=== PATIENT | male | born 1955 | race Caucasian/White ===

== ENCOUNTER 2025-04-19 14:32 | Inpatient (IN) ==
--- NOTE | 2025-04-19 15:04 | Emergency Department Note ---
Impression & Plan Acute left-sided weakness ED Provider Note ED Provider Note NAME: RAHUL DIAMOND AGE:69 SEX: Male : 1955 ARRIVES VIA: Private vehicle INFORMANT: Patient ED PROVIDER(s): Shea Parks DO CHIEF COMPLAINT: Left-sided weakness HPI: This is a 69-year-old male presents the emergency department due to concern for intermittent left-sided weakness over the last 2 days. Patient states he first began noticing symptoms night. He states he did fall trying to get up out of bed due to weakness. Patient states he seemed to feel little bit better in the morning and after getting up and getting around he felt as though the left side was nearly back to normal. He states yesterday evening" he started to have increased left-sided weakness again and fell. Family concerned this morning due to persistent symptoms and brought him in here for further evaluation. No recent fevers, chills, or illness. Patient states he has had prior coronary artery disease and angioplasty. He states he does not use any aspirin or Plavix. He states he does have high blood pressure and high cholesterol but does not routinely take medications. PAST MEDICAL HISTORY:See Below PAST SURGICAL HISTORY:See Below FAMILY HISTORY:See Below SOCIAL HISTORY:See Below HOME MEDICATIONS:See Below ALLERGIES:See Below VITALS:See Below PHYSICAL EXAMINATION: GENERAL: alert, well appearing, well nourished, no distress, non-toxic EYE EXAM: normal conjunctiva, PERRL and EOM's grossly intact OROPHARYNX: no exudate, no erythema, lips, buccal mucosa, and tongue normal and mucous membranes are moist NECK: supple, no nuchal rigidity, no adenopathy, non-tender LUNGS: Clear to auscultation. Normal chest wall mechanics, no w/r/r HEART: no murmurs, S1 normal and S2 normal ABDOMEN: abdomen soft, non-tender, normo-active bowel sounds, no masses, no rebound or guarding. BACK: Back is symmetrical on inspection and there is no deformity, no midline tenderness, no CVA tenderness. SKIN: no rashes, petechiae, orbruising UPPER EXTREMITIES: upper extremities are grossly normal. FROM, nml pulses b/l. LOWER EXTREMITIES: No pitting edema. FROM, nml pulses b/l. NEURO EXAM: Normal sensorium, cranial nerves II-XII grossly intact, normal speech, no facial droop,nogross weakness of arms, LLE weakness. Gross sensation intact. No ataxia.NIHSS 3 Vital Signs: reviewed and remarkable Differential Diagnosis: ischemic Stroke, hemorrhagic stroke, bells palsy, mass, neoplasm, migraine headache, seizure, subarachnoid hemorrhage, TIA, transient global amnesia, medication ADR, as well as others were considered MEDICAL DECISION MAKING: This is a 69-year-old male presents emergency department with 2 days of left- sided weakness. Patient was afebrile and hemodynamically stable although he was noted to be hypertensive. Patient states he is not currently taking any blood pressure medications. Labs drawn and sent, IV established, EKG and chest ray performed at bedside and interpreted by me and patient was monitored on telemetry. He was started on gentle IV fluid hydration and sent for CT/CTA. CTV did not reveal any acute infarct or ICH, however an old cerebellar infarct was noted. Patient denies ever being told he had a stroke or ever noting any strokelike symptoms including abrupt onset dizziness or vision changes. Patient with a low NIH stroke score however likely risk factors and per his own report noncompliance with previously prescribed medications for high blood pressure and high cholesterol. Patient also not taking any antiplatelet medications. Patient given aspirin and high-dose statin here and case discussed with the hospitalist team for further evaluation and management. Consultation(s): 1649: Discussed with Merissa Pastor hospitalist team, for additional evaluation and management. ER Treatment Provided: See below Diagnostics Interpreted By Me: -ECG: normal sinus at 85, leftward axis, normal intervals, no acute ST/T wave changes -Cardiac Monitoring: An order was placed for continuous cardiac monitoring. The monitor shows a rate of 82 with normal sinus rhythm. -Laboratory studies: As stated above and show below. -Imaging studies: ct head: no ich Triage Nursing Note Reviewed Prior/Outside Records Reviewed Past Med/Surg History Problem List CAD (coronary artery disease) HLD (hyperlipidemia) HTN (hypertension) Acute left-sided weakness (Acute) Social History (Updated 04/19/25 @ 17:40 by Natalee Carmona PA-C) Smoking Status: Current some day smoker Tobacco Type: Cigars Second Hand Exposure: No; Do You Dip or Chew Tobacco: No; Tobacco Cessation Education Requested by Patient: No Hx Alcohol Use: No Hx Substance Use: No Preferred Language: Yi Communication Ability: Effective Backside Grinder Required: No Beliefs That Will Affect Care: None Current Living Situation: Family Current Living Situation Comment: lives at home w/ son Other Information That Helps Us Care for You: No Feels Safe at Home: Yes Safety Concerns: Feels Safe At This Time Assistive Devices: None Allergies Allergies Allergy/AdvReac Type Severity Reaction Status Date / Time pollen extracts Allergy Congested Verified 04/19/25 16:50 Home Meds Home Medications Medication Instructions Recorded Confirmed valsartan 320 1 tab PO QAM 04/19/25 04/19/25 mg-hydrochlorothiazide 25 mg tablet Results & Data (ED) Vital Signs Vital Signs - 24 hr 04/19/25 14:35 04/19/25 14:56 04/19/25 15:52 Temperature 36.5 C Temperature Source Temporal Artery Scan Pulse Rate 89 Pulse Rate [Apical] 80 Pulse Rhythm [Apical] Regular Pulse Strength [Apical] Respiratory Rate 18 20 Respiratory Effort / Characteristics Non-Labored Spontaneous Respiratory Depth Normal Respiratory Pattern Regular Blood Pressure 183/96 H Blood Pressure [Left Arm] 179/103 H Blood Pressure Mean 125 Blood Pressure Mean [Left Arm] 128 Blood Pressure Position [Left Arm] Sitting Pulse Oximetry 95 92 96 Oxygen Delivery Method Room Air Room Air Sepsis Recent Fever Within 48 Hours No Sepsis New/Unexplained Change in Mental Status No Sepsis Action Taken by Nursing No Action Required 04/19/25 16:14 04/19/25 16:33 Temperature Temperature Source Pulse Rate 83 Pulse Rate [Apical] 82 Pulse Rhythm [Apical] Regular Pulse Strength [Apical] Normal Respiratory Rate 17 Respiratory Effort / Characteristics Non-Labored Spontaneous Respiratory Depth Normal Respiratory Pattern Regular Blood Pressure Blood Pressure [Left Arm] 180/104 H Blood Pressure Mean Blood Pressure Mean [Left Arm] 129 Blood Pressure Position [Left Arm] Sitting Pulse Oximetry 91 Oxygen Delivery Method Room Air Sepsis Recent Fever Within 48 Hours Sepsis New/Unexplained Change in Mental Status Sepsis Action Taken by Nursing Laboratory Data 04/19/25 14:48 04/19/25 14:48 Lab Results 04/19/25 04/19/25 04/19/25 Range/Units 14:48 14:54 16:19 WBC 8.78 (4.8-10.8) K/ul RBC 5.09 (4.70-6.10) M/uL Hgb 16.6 (14.0-18.0) g/dl POC Hgb 16.7 (14.0-18.0) g/dl Hct 46.5 (42.0-52.0) % POC Hct 49 (42-52) % MCV 91.4 (80.0-100.0) fL MCH 32.6 (25.0-34.0) pg MCHC 35.7 (32.0-36.0) g/dL RDW Std Deviation 43.0 (36.4-46.3) fL RDW Coeff of Kemar 12.8 (11.5-14.5) % Plt Count 270 (130-400) K/uL MPV 10.4 (9.4-12.4) fL Immature Gran % (Auto) 0.2 % Neut % (Auto) 64.3 % Lymph % (Auto) 24.6 % [place] % (Auto) 9.3 % Eos % (Auto) 1.1 % Baso % (Auto) 0.5 % Neut # (Auto) 5.64 (1.40-6.50) K/uL Lymph # (Auto) 2.16 (1.20-3.40) K/uL [place] # (Auto) 0.82 H (0.11-0.59) K/uL Eos # (Auto) 0.10 (0.00-0.50) K/uL Baso # (Auto) 0.04 (0.00-0.20) K/uL Immature Gran # (Auto) 0.02 (0.01-0.20) K/uL PT 10.9 (9.0-12.0) Seconds INR 1.0 (0.9-1.1) APTT 28 (21-31) Seconds PTT Ratio 1.0 POC Sodium 141 (135-144) mmol/L Sodium 140 (136-145) mmol/L POC Potassium 3.3 (3.3-5.0) mmol/L Potassium 3.2 L (3.5-5.1) mmol/L POC Chloride 99 L (101-112) mmol/L Chloride 100 (98-107) mmol/L Carbon Dioxide 33 H (21-32) mmol/L POC Total CO2 32 H (24-31) mmol/L Anion Gap 7 (3-11) POC Anion Gap 15.0 L (16-25) mmol/L POC BUN 24 H (7-18) mg/dl BUN 23 (6-23) mg/dl Creatinine 1.46 H (0.6-1.4) mg/dl POC Creatinine 1.7 H (0.6-1.3) mg/dl Est Cr Clr Drug Dosing Not Reportable eGFR 52.38 BUN/Creatinine Ratio 15.8 (10-20) Glucose 135 H (70-99(Fasting)) mg/dl POC Glucose (other) 133 H (70-99) mg/dl Calcium 10.4 H (8.6-10.3) mg/dl POC Ioniz Calcium Jarrell 1.25 (1.12-1.32) mmol/l Magnesium 1.9 (1.7-2.4) mg/dl Total Bilirubin 0.7 (0.2-1.0) mg/dl AST 22 (13-39) U/L ALT 22 (7-52) U/L Alkaline Phosphatase 75 (34-104) U/L Troponin I High Sens 11.5 (0-20) pg/ml Total Protein 7.9 (6.0-8.3) gm/dl Albumin 4.3 (3.4-5.0) gm/dl Globulin 3.6 (2.5-4.0) gm/dl Albumin/Globulin Ratio 1.2 (0.9-2) Urine Color Yellow Urine Appearance Clear (Clear) Urine pH 6.0 (4.5-7.5) Ur Specific [place] 1.041 H (1.000-1.030) Urine Protein Negative (Negative) Urine Glucose (UA) Negative (Negative) Urine Ketones Negative (Negative) Urine Blood Negative (Negative) Urine Nitrite Negative (Negative) Urine Bilirubin Negative (Negative) Urine Urobilinogen Negative (Negative) Ur Leukocyte Esterase Trace H (Negative) Urine WBC (Auto) 0-5 (0-5) /hpf Urine RBC (Auto) 0-2 (0-2) /hpf U Hyaline Cast (Auto) 0-2 (0-2) /lpf U Epithel Cells (Auto) 0-2 (0-2) /hpf Urine Bacteria (Auto) None Seen (None Seen) Urine Comment Anaplasma Smear See Comment Babesia Smear See Comment Lyme Disease Screen Negative (Negative) Administered Medications Atorvastatin Calcium (Atorvastatin 40 Mg Tab) 80 mg PO QAM MARY Stop: 05/19/25 16:59 Last Admin: 04/19/25 17:14 Dose: 80 mg Documented By: david Sodium Chloride (Nss) 1,000 mls @ 125 mls/hr IV .Q8H MARY Stop: 04/20/25 00:00 Last Admin: 04/19/25 15:15 Dose: 125 mls/hr Documented By: AMS Discontinued Medications Aspirin (Aspirin 325 Mg Ectab) 325 mg PO NOW STA Stop: 04/19/25 16:52 Last Admin: 04/19/25 17:14 Dose: 325 mg Documented By: david Ioversol (Optiray 320 125ml) 119 ml IV ONCE ONE Stop: 04/19/25 15:38 Last Admin: 04/19/25 15:37 Dose: 119 ml Documented By: ANT Labetalol HCl (Labetalol Hcl Iv 5 Mg/Ml 20ml) 5 mg IV NOW STA Stop: 04/19/25 20:39 Last Admin: 04/19/25 21:05 Dose: Not Given Documented By: alt Potassium Chloride (Potassium Chloride 20 Meq/15 Ml Udc) 40 meq PO NOW STA Stop: 04/19/25 19:54 Last Admin: 04/19/25 21:02 Dose: 40 meq Documented By: alt Imaging Data Radiologist's Impression: Chest X-Ray 04/19/25 14:55 Chest radiograph, one view History: Neuro deficit Comparison: None Findings: Single AP view of the chest performed. No focal consolidation or pleural effusion. No pneumothorax. The cardiomediastinal silhouette is within normal limits. Normal pulmonary vascularity. No evidence for lymphadenopathy. No visualized bony or soft tissue abnormality. Impression: Normal chest radiograph Electronically signed by Jorge Lo 04-19-2025 3:[address] 04/19/25 14:55 Clinical History: Weakness Technique: Axial computed tomography images were obtained of the brain without intravenous contrast. Findings: There is diffuse cerebral atrophy, within expected limits for the patient's age. Areas of decreased attenuation are seen within the periventricular white matter, likely representing chronic small vessel ischemic disease. There is an apparent old infarct of the right cerebellar hemisphere. There is no definite sign of acute infarction. No intracranial hemorrhage is evident. No definite mass lesion is seen on this noncontrast examination. There is no midline shift or other form of herniation. No hydrocephalus is seen. No fracture is identified. The orbits and the visualized paranasal sinuses appear unremarkable. The mastoid air cells appear clear. Impression: 1. Cerebral atrophy, old cerebellar infarct, and chronic small vessel ischemic disease 2. No definite acute pathology Electronically signed by Christian Montes 04-19-2025 3:48 PM Head CTA 04/19/25 14:55 Clinical history: Left leg weakness Technique: Axial computed tomography images were obtained of the brain after the administration of intravenous contrast according to the CT angiogram protocol Findings: No definite stenosis or aneurysm is seen of the anterior, middle, or posterior cerebral artery circulations. There is a moderate severity stenosis of the basilar artery Impression: 1. 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 No other definite stenosis or aneurysm of the intracranial arteries Electronically signed by Christina Montes 04-19-2025 3:51 PM Neck CTA 04/19/25 14:55 Clinical history: Left leg weakness Technique: Axial computed tomography images were obtained of the neck after the administration of intravenous contrast according to the CT angiogram protocol Findings: No stenosis is seen of the common carotid arteries bilaterally. There is plaque within the carotid bulbs bilaterally, without significant stenosis. The remainder of the internal carotid arteries appear patent bilaterally. No stenosis of the external carotid arteries is seen The vertebral arteries are patent bilaterally with no significant stenosis seen. 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 Impression: Bilateral carotid atherosclerosis, without significant stenosis Electronically signed by Christian Montes 04-19-2025 3:55 PM Discharge Plan Visit Data Chief Complaint: Neuro Symptoms/Deficit Stated Complaint: NEURO SYMPTOMS ED Provider: Shea Parks Discharge Problem: Acute left-sided weakness Patient Disposition: Admitted As Inpatient Condition: Fair Discharge Instructions Interventions: ED Discharge Assessment Last Done: 04/19/25 18:27
[2025-04-19] MEDS: SODIUM CHLORIDE 0.9% 1,000 ML IV SCH (15:15)
[2025-04-19 15:31] LABS: Hematocrit (blood only) 46.5 % (42.0-52.0); Hemoglobin 16.6 g/dl (14.0-18.0); Immature Granulocytes # (auto) 0.02 K/uL (0.01-0.20); Immature Granulocytes % (auto) 0.2 %; Mean Corpuscular Hemoglobin 32.6 pg (25.0-34.0); Mean Corpuscular Volume 91.4 fL (80.0-100.0); Platelet Count 270 K/uL (130-400); RDW Standard Deviation 43.0 fL (36.4-46.3); Red Blood Count 5.09 M/uL (4.70-6.10); White Blood Count 8.78 K/ul (4.8-10.8)
--- NOTE | 2025-04-19 15:33 | XRay Report ---
Chest radiograph, one view History: Neuro deficit Comparison: None Findings: Single AP view of the chest performed. No focal consolidation or pleural effusion. No pneumothorax. The cardiomediastinal silhouette is within normal limits. Normal pulmonary vascularity. No evidence for lymphadenopathy. No visualized bony or soft tissue abnormality. Impression: Normal chest radiograph Electronically signed by Jorge Lo 04-19-2025 3:32 PM
[2025-04-19] MEDS: OPTIRAY 320 125ml IV ONE (15:37)
--- NOTE | 2025-04-19 15:48 | CT Scan Report ---
Clinical History: Weakness Technique: Axial computed tomography images were obtained of the brain without intravenous contrast. Findings: There is diffuse cerebral atrophy, within expected limits for the patient's age. Areas of decreased attenuation are seen within the periventricular white matter, likely representing chronic small vessel ischemic disease. There is an apparent old infarct of the right cerebellar hemisphere. There is no definite sign of acute infarction. No intracranial hemorrhage is evident. No definite mass lesion is seen on this noncontrast examination. There is no midline shift or other form of herniation. No hydrocephalus is seen. No fracture is identified. The orbits and the visualized paranasal sinuses appear unremarkable. The mastoid air cells appear clear. Impression: 1. Cerebral atrophy, old cerebellar infarct, and chronic small vessel ischemic disease 2. No definite acute pathology Electronically signed by Christian Montes 04-19-2025 3:48 PM
[2025-04-19 15:52] LABS: Alanine Aminotransferase 22 U/L (7-52); Albumin Globulin Ratio 1.2 (0.9-2); Albumin Level 4.3 gm/dl (3.4-5.0); Alkaline Phosphatase 75 U/L (34-104); Anion Gap 7 (3-11); Bilirubin,Total 0.7 mg/dl (0.2-1.0); Blood Urea Nitrogen 23 mg/dl (6-23); Calcium 10.4 mg/dl (8.6-10.3); Carbon Dioxide 33 mmol/L (21-32); Chloride 100 mmol/L (98-107); Globulin 3.6 gm/dl (2.5-4.0); Glucose 135 mg/dl (70-99(Fasting)); Magnesium 1.9 mg/dl (1.7-2.4); Potassium 3.2 mmol/L (3.5-5.1); Sodium 140 mmol/L (136-145); Total Protein 7.9 gm/dl (6.0-8.3)
--- NOTE | 2025-04-19 15:53 | CT Scan Report ---
Clinical history: Left leg weakness Technique: Axial computed tomography images were obtained of the brain after the administration of intravenous contrast according to the CT angiogram protocol Findings: No definite stenosis or aneurysm is seen of the anterior, middle, or posterior cerebral artery circulations. There is a moderate severity stenosis of the basilar artery Impression: 1. 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 No other definite stenosis or aneurysm of the intracranial arteries Electronically signed by Christian Montes 04-19-2025 3:51 PM
[2025-04-19 15:56] LABS: INR 1.0 (0.9-1.1); Partial Thromboplastin Time 28 Seconds (21-31); Prothrombin Time 10.9 Seconds (9.0-12.0)
--- NOTE | 2025-04-19 16:00 | CT Scan Report ---
Clinical history: Left leg weakness Technique: Axial computed tomography images were obtained of the neck after the administration of intravenous contrast according to the CT angiogram protocol Findings: No stenosis is seen of the common carotid arteries bilaterally. There is plaque within the carotid bulbs bilaterally, without significant stenosis. The remainder of the internal carotid arteries appear patent bilaterally. No stenosis of the external carotid arteries is seen The vertebral arteries are patent bilaterally with no significant stenosis seen. 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 Impression: Bilateral carotid atherosclerosis, without significant stenosis Electronically signed by Christian Montes 04-19-2025 3:55 PM
--- NOTE | 2025-04-19 16:56 | History & Physical Report ---
Date of Service April 19, 2025 Assessment & Plan (1) Acute left-sided weakness: (2) HTN (hypertension): (3) HLD (hyperlipidemia): (4) CAD (coronary artery disease): Plan - Admit to tele - Stroke order set completed, no indication for thrombolytic - CT head reviewed and shows a chronic cerebellar stroke which the patient was unaware of. Left sided leg weakness present, left arm weakness is minimal currently, he cannot shrug the left shoulder. 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 - MRI brain wo contrast ordered - Check Echocardiogram - Neck CTA showed Bilateral carotid atherosclerosis, without significant stenosis- can consider carotid U/S for percentage of stenosis. - Given full dose aspirin and atorvastatin, cont baby aspirin and statin daily pending neuro recs. - Will allow permissive hypertension with SBP 140-170 - need pt to provide med list to confirm home antihypertensives and dosages as he doesn't know and I do not have access to them. - Tele-neurology consulted - PT/OT consults placed - Passed bedside swallow evaluation - speech evaluation ordered, allow HH diet - A1C and lipids with am labs - Neuro checks, fall precautions CAD HTN HLD - pt reports hx of angioplasty in 2017, have requested records from OSH by HIM - Allow permissive hypertension - dose of chlorthalidone to be confirmed once have med list? - statin therapy dialy - Check lipid panel with am labs DVT ppx: teds, scds Lines: PIV x 1 Diet: HH CODE: FULL Dispo: From home, likely to remain in the hospital x 1-2 days A total of 77 minutes were spent with greater than 50% of that time face to face with the patient, personally reviewing all current laboratories, imaging studies, past medication reconciliation, outpatient chart review, and discussion with specialists to collaborate care for the patient with attending. Please see attending documentation for corrections and/or additions. History of Present Illness Chief Complaint: Acute left sided weakness Primary Care Provider: NO PCP This is a 69 yo M with PMHx of CAD, s/p angioplasty in 2017, (no stents), HTN, HLD, but does not take any medications for such. Presents to ER with left sided waxing and waning weakness which began night. He got up in middle of night and fell next to the bed because his left leg gave out , causing him to fall onto the floor. At that time he noticed left hand tingling as well. He struggled for some time to get up and urinated on himself due to inability to get to the bathroom in time. Eventually pulled himself up and went back to bed. Left leg weakness was slightly improved but was still present on Monday morning, so he attempted to go about his day. Left leg weakness worsened in the evening and he had similar repeat of events with falling when trying to get out of bed to go to the bathroom in the middle of the night on Monday. Pt is visiting here from [place] and has been here for about the past 3 weeks, living with a significant other whom they co[place]. She asked him to come to the ER and drove him here. During the ride here, pt reports his left hand breastfeeding program coordinator strength seemed gone and dropped a bottle of water in the car. He denies speech discrepancies, word finding or garbled speech. He does note that he has had difficulty over the past 3 weeks with word finding and forgetfulness. CTA neck shows old cerebellar stroke. He was unaware of such. During my evaluation, patients weakness is worse in the left leg overall, minimal left arm and left breastfeeding program coordinator strength discrepancy compared to the right arm. He is tearful at times, saying that his only son is in the [place] and [place] currently, and he has no way to contact him regarding this. Pt notes he was supposed to travel back to [place] this weekend to start a new job on Monday. In regards to medications, patient is supposed to be taking chlorthalidone for BP management but does not know when he took it last or the dosage, also takes a baby aspirin when he remembers it, maybe 3-4x per week. Social Hx: Chews cigars but does not smoke them, no cigarette smoking hx, no chewing tobacco use, no alcohol or illicit drug use. Family Hx: Father: CVA, Alzheimer disease, at age 90 in 2013. Mother at age 97 of failure to thrive. Pt has two older sisters both with DM II, and two younger brothers with DMII. One of his brothers has also had a recent CVA. Allergies Allergy/AdvReac Type Severity Reaction Status Date / Time pollen extracts Allergy Congested Verified 04/19/25 16:50 Home Medications Medication Instructions Recorded Confirmed Type valsartan 320 1 tab PO QAM 04/19/25 04/19/25 History mg-hydrochlorothiazide 25 mg tablet Past Med/Surg History Problem List CAD (coronary artery disease) HLD (hyperlipidemia) HTN (hypertension) Acute left-sided weakness (Acute) Social History (Updated 04/19/25 @ 17:40 by Natalee Carmona PA-C) Smoking Status: Light tobacco smoker Tobacco Type: Cigars Review of Systems Review of Systems: Constitutional: No fever, sweats or chills Eyes: No diplopia, no worsening or blurred vision ENT: normal hearing, no trouble swallowing Respiratory: No cough, sputum, dyspnea at rest or on exertion Cardiovascular: No chest pain, tightness or palpitations, hx of CAD s/p angioplasty, no cardiac stents. He is noncompliant with cardiac meds. Abdomen: No pain, nausea, vomiting, diarrhea or constipation Musculoskeletal: No joint pain, calf pain, swelling Neurologic: As per HPI Psychiatric: No anxiety or depression Skin: No rash or itch Physical Exam Physical Exam: General: awake, alert, no apparent distress, white male Head: Normocephalic, atraumatic ENT: PERRL, EOMI, no pharyngeal exudate, mucous membranes moist Chest: Clear to auscultation, on room air, no adventitious breath sounds Cardiac: Regular rate and rhythm, no murmur, no JVD, normal peripheral pulses, good capillary refill Abdominal: NABS x 4 quadrants, soft, nondistended, nontender to palpation, no rebound or guarding Extremities: Normal inspection, no peripheral edema or erythema, calfs nontender to palpation Psych: Normal mood and affect Neuro: AAO x 3, strength rated 5/5 on the right lower extremity, rated 4/5 in the left leg and can hold leg in the air but unable to lift more than 30 degrees off the bed. He struggles to bend the left knee and pull his leg up. Pt answers all questions appropriately. No pronator drift. He has strength left arm rated 4/5 compared to the right at 5/5. 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 Pt is unable to shrug the left shoulder at all. He has no sensory deficits to light touch throughout. Speech is clear. No word finding. Can perform heel to girard testing with right leg, difficulty with the left leg moving down the right girard. Results & Data Results & Data Vital Signs (Past 12 Hours) Vital Signs Temp Pulse Pulse Resp BP BP Pulse Ox 04/19/25 16:33 82 17 180/104 H 91 04/19/25 16:14 83 04/19/25 15:52 96 04/19/25 14:56 80 20 179/103 H 92 04/19/25 14:35 36.5 C 89 18 183/96 H 95 O2 Del Method 04/19/25 16:33 Room Air 04/19/25 16:14 04/19/25 15:52 Room Air 04/19/25 14:56 Room Air 04/19/25 14:35 Laboratory Results 04/19/25 04/19/25 04/19/25 16:19 14:54 14:48 WBC 8.78 RBC 5.09 Hgb 16.6 POC Hgb 16.7 Hct 46.5 POC Hct 49 MCV 91.4 MCH 32.6 MCHC 35.7 RDW Std Deviation 43.0 RDW Coeff of Kemar 12.8 Plt Count 270 MPV 10.4 Immature Gran % (Auto) 0.2 Neut % (Auto) 64.3 Lymph % (Auto) 24.6 [place] % (Auto) 9.3 Eos % (Auto) 1.1 Baso % (Auto) 0.5 Neut # (Auto) 5.64 Lymph # (Auto) 2.16 [place] # (Auto) 0.82 H Eos # (Auto) 0.10 Baso # (Auto) 0.04 Immature Gran # (Auto) 0.02 PT 10.9 INR 1.0 APTT 28 PTT Ratio 1.0 POC Sodium 141 Sodium 140 POC Potassium 3.3 Potassium 3.2 L POC Chloride 99 L Chloride 100 Carbon Dioxide 33 H POC Total CO2 32 H Anion Gap 7 POC Anion Gap 15.0 L POC BUN 24 H BUN 23 Creatinine 1.46 H POC Creatinine 1.7 H Est Cr Clr Drug Dosing Not Reportable eGFR 52.38 BUN/Creatinine Ratio 15.8 Glucose 135 H POC Glucose (other) 133 H Calcium 10.4 H POC Ioniz Calcium Jarrell 1.25 Magnesium 1.9 Total Bilirubin 0.7 AST 22 ALT 22 Alkaline Phosphatase 75 Troponin I High Sens 11.5 Total Protein 7.9 Albumin 4.3 Globulin 3.6 Albumin/Globulin Ratio 1.2 Urine Comment Anaplasma Smear See Comment Babesia Smear See Comment Lyme Disease Screen Negative Diagnostic Findings Chest X-Ray 04/19/25 14:55 Chest radiograph, one view History: Neuro deficit Comparison: None Findings: Single AP view of the chest performed. No focal consolidation or pleural effusion. No pneumothorax. The cardiomediastinal silhouette is within normal limits. Normal pulmonary vascularity. No evidence for lymphadenopathy. No visualized bony or soft tissue abnormality. Impression: Normal chest radiograph Electronically signed by Jorge Lo 04-19-2025 3:[address] 04/19/25 14:55 Clinical History: Weakness Technique: Axial computed tomography images were obtained of the brain without intravenous contrast. Findings: There is diffuse cerebral atrophy, within expected limits for the patient's age. Areas of decreased attenuation are seen within the periventricular white matter, likely representing chronic small vessel ischemic disease. There is an apparent old infarct of the right cerebellar hemisphere. There is no definite sign of acute infarction. No intracranial hemorrhage is evident. No definite mass lesion is seen on this noncontrast examination. There is no midline shift or other form of herniation. No hydrocephalus is seen. No fracture is identified. The orbits and the visualized paranasal sinuses appear unremarkable. The mastoid air cells appear clear. Impression: 1. Cerebral atrophy, old cerebellar infarct, and chronic small vessel ischemic disease 2. No definite acute pathology Electronically signed by Christian Montes 04-19-2025 3:48 PM Head CTA 04/19/25 14:55 Clinical history: Left leg weakness Technique: Axial computed tomography images were obtained of the brain after the administration of intravenous contrast according to the CT angiogram protocol Findings: No definite stenosis or aneurysm is seen of the anterior, middle, or posterior cerebral artery circulations. There is a moderate severity stenosis of the basilar artery Impression: 1. 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 No other definite stenosis or aneurysm of the intracranial arteries Electronically signed by Christian Montes 04-19-2025 3:51 PM Neck CTA 04/19/25 14:55 Clinical history: Left leg weakness Technique: Axial computed tomography images were obtained of the neck after the administration of intravenous contrast according to the CT angiogram protocol Findings: No stenosis is seen of the common carotid arteries bilaterally. There is plaque within the carotid bulbs bilaterally, without significant stenosis. The remainder of the internal carotid arteries appear patent bilaterally. No stenosis of the external carotid arteries is seen The vertebral arteries are patent bilaterally with no significant stenosis seen. 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 Impression: Bilateral carotid atherosclerosis, without significant stenosis Electronically signed by Christian Montes 04-19-2025 3:55 PM ECG Rate (beats per minute): 85 Rhythm: normal sinus Additional Comments: Old inferior infarct. No previous EKG available for comparison. Personally reviewed. Code Status & VTE Plan Code Status Full code Supervising Physician Co-Signing Physician Notes Patient presenting with left sided weakness since . On exam, shrugging difficulties on left, left arm and left leg weakness, NIHSS of 2 for left leg drift albeit clouded by difficulty with moving it. No leukocytosis, K of 3.2 replenished. Creatinine 1.46, unclear baseline, per patient around 1.4. Basilar stenosis severe, old cerebellar infarct, cerebral atrophy noted. Patient presenting with what appears to be a left sided stroke. Has prior stroke on CT imaging as well. Aspirin, statin ordered. Stroke order set ordered. MR brain for further definition of stroke, deficits suggest possible right MCA infarct. Check A1c, lipids, TSH. PT/OT speech as well. Neurology consult, appreciate recs. I have seen and discussed the case with the collaborating advanced practitioner. I agree with the above H&P. I have reviewed and confirmed the patients medical history, the findings on physical examination, and the patients diagnosis and treatment plan with Natalee Carmona PA-C and agree with the information documented. I spent a total of 20 minutes coordinating, documenting, and providing care for this patient excluding time spent in the performance of separately billed services. All of the aforementioned completed outside of collaborating with the assigned advanced practitioner for a full treatment plan. I have reviewed the advanced practitioner's documentation, and I agree with, and take responsibility for the plan of care
[2025-04-19 17:01] LABS: Appearance Urine Clear (Clear); Bacteria Urine Automated None Seen (None Seen); Cast Urine Automated 0-2 /lpf (0-2); Epithelial Cell Urine Auto 0-2 /hpf (0-2); Glucose Urine UA Negative (Negative); RBC Urine Automated 0-2 /hpf (0-2); WBC Urine Automated 0-5 /hpf (0-5)
[2025-04-19] MEDS: ASPIRIN 325 MG ECTAB PO STA (17:14)
[2025-04-19] MEDS: ATORVASTATIN 40 MG TAB PO SCH (17:14)
[2025-04-19] MEDS ORDERED: PHARMACIST DISCHARGE MED REC CONSULT PRN (18:52)
[2025-04-19] MEDS: POTASSIUM CHLORIDE 20 MEQ/15 ML UDC PO STA (21:02)
[2025-04-19] MEDS: LABETALOL HCL IV 5 MG/ML 20ML IV STA (21:05)
[2025-04-20 08:13] LABS: Hematocrit (blood only) 42.8 % (42.0-52.0); Hemoglobin 15.4 g/dl (14.0-18.0); Immature Granulocytes # (auto) 0.01 K/uL (0.01-0.20); Immature Granulocytes % (auto) 0.1 %; Mean Corpuscular Hemoglobin 33.0 pg (25.0-34.0); Mean Corpuscular Volume 91.6 fL (80.0-100.0); Platelet Count 230 K/uL (130-400); RDW Standard Deviation 42.9 fL (36.4-46.3); Red Blood Count 4.67 M/uL (4.70-6.10); White Blood Count 6.71 K/ul (4.8-10.8)
[2025-04-20 08:35] LABS: Anion Gap 7.0 (3-11); Blood Urea Nitrogen 19.0 mg/dl (6-23); Calcium 9.6 mg/dl (8.6-10.3); Carbon Dioxide 31.0 mmol/L (21-32); Chloride 103.0 mmol/L (98-107); Cholesterol 193.0 mg/dl (0-200); Creatinine Clr Calc Pharmacy 61.4 ml/min; Glucose 100.0 mg/dl (70-99(Fasting)); HDL Cholesterol 39.0 mg/dl; Potassium 3.5 mmol/L (3.5-5.1); Sodium 141.0 mmol/L (136-145); Triglycerides 97.0 mg/dl (0-150)
[2025-04-20] MEDS: ASPIRIN 81 MG ECTAB PO SCH (09:00)
[2025-04-20] MEDS ORDERED: ATORVASTATIN 40 MG TAB PO SCH (09:00)
[2025-04-20 09:01] LABS: Hemoglobin A1C 5.8 % (4.5-5.6)
--- NOTE | 2025-04-20 10:51 | Hospitalist Progress Note ---
Date of Service April 20, 2025 Assessment & Plan (1) Acute left-sided weakness: (2) HTN (hypertension): (3) HLD (hyperlipidemia): (4) CAD (coronary artery disease): Plan Patient presents with concern for left sided weakness ( LLE weakness > LUE) CT head shows a chronic cerebellar stroke CTA Head- mod severity stenosis of basilar artery CTA Neck- carotid atherosclerosis, wo significant stenosis Started aspirin, lipitor-continue will start antihypertensive to normalize blood pressure MRI brain wo contrast pending Echo pending PT/OT neurology consult pending CAD HTN HLD - pt reports hx of angioplasty in 2017, have requested records from OSH by HIM -continue on aspirin, lipitor -started on antihypertensive DVT ppx: heparin Lines: PIV x 1 Diet: HH CODE: FULL Dispo: from [place] visiting friends;work up pending Time spent evaluating patient, direct bedside care, chart review, placing orders, interpretation of diagnostic studies, discussion with consultants, patient, and family members, as well as other required patient management activities is 50 minutes Please note the above document was generated using voice recognition software. It may contain grammatical, syntax or spelling errors. Any formal questions or concerns about the content, text or information contained within the body of this dictation should be directly addressed to the provider for clarification Admission and Anticipated Discharge Date Admission Date: April 19, 2025 Subjective Patient seen and examined at bedside. He is comfortable; not in distress. Reports some weakness on the left lower extremity; no weakness on left upper extremity. Physical Exam Physical Exam: Constitutional: WD/WN, vitals as above, NAD, sitting up in bed, pleasant, conversing easily Respiratory: normal respiratory effort, lungs clear to auscultation, no wheeze, rales, rhonchi. Normal insp/exp effort, no accessory muscle use Cardiovascular: RRR, no murmur, no edema Vessels: no JVD or carotid bruit Chest: normal inspection of chest Abdomen: normal bowel sounds, soft, nontender, no hepatosplenomegaly Neurologic: PERRL, EOMI, accommodation nl, no face palsy, no dysarthria CN's II- XI intact bilaterally. left LE 4+/5(reports improvement compared to yesterday). intact strength otherwise Psychiatric: A+Ox3, euthymic affect Results & Data Results & Data Vital Signs (Past 12 Hours) Vital Signs Temp Pulse Pulse Resp BP Pulse Ox O2 Del Method 04/20/25 08:17 36.8 C 79 18 172/78 H 97 Room Air 04/20/25 04:30 36.5 C 78 18 184/102 H 96 Room Air 04/20/25 00:00 64
--- NOTE | 2025-04-20 11:39 | XRay Report ---
HISTORY: MRI clearance. Evaluation for orbital metal. TECHNIQUE: Orbits, 3 views. COMPARISON: None. FINDINGS: No radiopaque orbital foreign body is identified. The sella is not expanded. No paranasal sinus air-fluid levels. Mastoid air cells are well aerated. Radiopaque dental amalgam. Atherosclerotic calcification in the region of both carotid bifurcations. IMPRESSION: No radiopaque orbital foreign body. Electronically signed by Toño Llanos 04-20-2025 11:38 AM
--- NOTE | 2025-04-20 12:29 | Magnetic Resonance Report ---
HISTORY: Left lower extremity weakness. TECHNIQUE: MRI of the brain without contrast. COMPARISON: Head CT dated 04/19/2025. FINDINGS: The sella is not expanded. The cerebellar tonsils do not extend below the foramen magnum. Single focus of restricted diffusion involving the right centrum semiovale on series 8 image 35 consistent with a punctate infarct. Rightcerebellar hemisphere encephalomalacia consistent with remote infarct. Severe periventricular/Subcortical white matter T2/FLAIR hyperintensity is nearly confluent. areas of remote lacunar infarct involving the basal ganglia and right centrum seminal ovale. Moderate diffuse volume loss. Ventricular caliber is appropriate for the degree of volume loss. The fourth ventricle is midline. The basal cisterns are patent. The major intracranial flow voids are maintained. The globes and orbits are unremarkable. No paranasal sinus air-fluid levels. Mastoid air cells are well aerated. The soft tissues of the skull base and scalp are unremarkable. IMPRESSION: * Punctate focus of restricted diffusionIn the right centrum semiovale on series 8 image 35 consistent with acute infarct. * Severe nonspecific white matter T2/FLAIR hyperintensity. This is commonly attributed to severe chronic microvascular ischemic changes with other differential considerations including demyelinating disease or other infectious or inflammatory causes of leukoencephalopathy. * Encephalomalacia in the right cerebellar hemisphere consistent with remote infarct. * Additional chronic and/or incidental findings as detailed above. Electronically signed by Toño Llanos 04-20-2025 12:29 PM
--- NOTE | 2025-04-20 13:12 | XCELERA ---
[id number]
[2025-04-20] MEDS: hydroCHLOROthiazide 25 MG TAB PO STA (13:36)
[2025-04-20] MEDS: VALSARTAN 80 MG TAB PO STA (13:36)
--- NOTE | 2025-04-20 13:38 | Neurology Consultation ---
Date of Consultation April 20, 2025 Assessment & Plan (1) Stroke with cerebral ischemia: Mj De Leon is a 69 yo M presenting with L sided weakness secondary to a R hemispheric stroke - primary infarct is in the R BLAINE territory and very small but explains his leg weakness. Suspect related to atheroembolism from his carotid plaque. Afib can not be excluded but would wait until he returns to [place] to pursue cardiac event monitoring. In the meantime I agree with liptor 80mg daily and dapt, please load 300mg plavix and continue aspirin 81mg daily and plavix 75mg daily for 21 days. Otherwise his fluctuations post-stroke are not unexpected, he was educated on his stroke risk factors and signs/symptoms. -- DAPT with aspirin and plavix for 21 days, give 300mg x1 plavix now -- Lipitor 80mg daily -- Goal normotension -- Close follow-up in [place] with cardiac event monitoring -- Therapy for dispo planning -- Please contact us with further questions Telehealth Consultation Telehealth Information Telehealth Information: I performed this visit using a real-time telehealth connection between my location and the patients location ([facility]). After connecting through interactive tele-video, patient was identified by name and date of and/or wristband check.Patient (or authorized healthcare union representative) was informed that this was a telemedicine visit and it was being conducted confidentially over secure lines. My office door was closed and no one else was present in the room with me.Patient (or authorized healthcare union representative) provided consent to proceed with the visit, expressed an understanding of privacy and security of the telemedicine visit, and gave permission to have a hospital union representative in the room in order to assist with the visit and to conduct portions of the visit, as needed. I informed the patient (or authorized healthcare union representative) that I reviewed their record and presented the opportunity for them to ask any questions regarding the visit today. The patient agreed to participate. History of Present Illness Reason for Consultation: L leg weakness Requesting Physician: Dr. Ramsey Attending Physician: Ced Ramsey MD History of Present Illness Mj De Leon is a 69 yo M presenting with L sided weakness which initially resolved then worsened again this morning while going to [facility]. He is nearly back to his baseline and able to stand but still feels some weakness particularly in the L leg. He has never had a stroke in the past, was not on any antiplatelets at home. Is from [place] and is planning to return after discharge. Noted cigar smoking 7-10 per week. Denies any new symptoms since arrival, just fluctuation of his L sided weakness, particularly in the leg. Allergies Allergy/AdvReac Type Severity Reaction Status Date / Time pollen extracts Allergy Congested Verified 04/19/25 16:50 Home Medications Medication Instructions Recorded Confirmed Type valsartan 320 1 tab PO QAM 04/19/25 04/19/25 History mg-hydrochlorothiazide 25 mg tablet Patient History Social History (Updated 04/19/25 @ 17:40 by Natalee Carmona PA-C) Smoking Status: Current some day smoker Tobacco Type: Cigars Second Hand Exposure: No; Do You Dip or Chew Tobacco: No; Tobacco Cessation Education Requested by Patient: No Hx Alcohol Use: No Hx Substance Use: No Preferred Language: Slovenian Communication Ability: Effective Remote Sensing Technician Required: No Beliefs That Will Affect Care: None Current Living Situation: Family Current Living Situation Comment: lives at home w/ son Other Information That Helps Us Care for You: No Feels Safe at Home: Yes Safety Concerns: Feels Safe At This Time Assistive Devices: CPAP Review of Systems +L leg weakness Physical Exam Neurological Examination: Mental Status: Awake and alert. Oriented to person, place, and time. Fluent. Comprehension intact. Affect appropriate. Cranial Nerves: II: Reads NIHSS cards, pupils 3/3 to 2/2, rae grossly intact. III/IV/: Versions intact without nystagmus, no gaze preference. V: Facial sensation symmetric to light touch VII: Facial expression symmetric VIII: Hearing intact to voice IX/X: Palate elevates symmetrically XI: Shoulder shrug symmetric XII: Tongue midline Motor: Strength was symmetric and antigravity throughout. Pronator drift was absent. There were no abnormal movements. Sensory: Sensation to light touch was intact. Coordination: Finger to nose and heel to girard were intact. Gait: Narrow based and normal. Results & Data Vital Signs (Past 12 Hours) Vital Signs Temp Pulse Resp BP Pulse Ox O2 Del Method 04/20/25 08:17 36.8 C 79 18 172/78 H 97 Room Air 04/20/25 04:30 36.5 C 78 18 184/102 H 96 Room Air Laboratory Results Abnormal lab results 04/19/25 04/19/25 04/19/25 Range/Units 14:48 14:54 16:19 RBC (4.70-6.10) M/uL [place] # (Auto) 0.82 H (0.11-0.59) K/uL Potassium 3.2 L (3.5-5.1) mmol/L POC Chloride 99 L (101-112) mmol/L Carbon Dioxide 33 H (21-32) mmol/L POC Total CO2 32 H (24-31) mmol/L POC Anion Gap 15.0 L (16-25) mmol/L POC BUN 24 H (7-18) mg/dl Creatinine 1.46 H (0.6-1.4) mg/dl POC Creatinine 1.7 H (0.6-1.3) mg/dl Glucose 135 H (70-99(Fasting)) mg/dl POC Glucose (other) 133 H (70-99) mg/dl Hemoglobin A1c (4.5-5.6) % Calcium 10.4 H (8.6-10.3) mg/dl Ur Specific [place] 1.041 H (1.000-1.030) Ur Leukocyte Esterase Trace H (Negative) 04/20/25 Range/Units 07:13 RBC 4.67 L (4.70-6.10) M/uL [place] # (Auto) 0.67 H (0.11-0.59) K/uL Potassium (3.5-5.1) mmol/L POC Chloride (101-112) mmol/L Carbon Dioxide (21-32) mmol/L POC Total CO2 (24-31) mmol/L POC Anion Gap (16-25) mmol/L POC BUN (7-18) mg/dl Creatinine (0.6-1.4) mg/dl POC Creatinine (0.6-1.3) mg/dl Glucose 100 H (70-99(Fasting)) mg/dl POC Glucose (other) (70-99) mg/dl Hemoglobin A1c 5.8 H (4.5-5.6) % Calcium (8.6-10.3) mg/dl Ur Specific [place] (1.000-1.030) Ur Leukocyte Esterase (Negative) Diagnostic Findings Chest X-Ray 04/19/25 14:55 Chest radiograph, one view History: Neuro deficit Comparison: None Findings: Single AP view of the chest performed. No focal consolidation or pleural effusion. No pneumothorax. The cardiomediastinal silhouette is within normal limits. Normal pulmonary vascularity. No evidence for lymphadenopathy. No visualized bony or soft tissue abnormality. Impression: Normal chest radiograph Electronically signed by Jorge Lo 04-19-2025 3:[address] 04/19/25 14:55 Clinical History: Weakness Technique: Axial computed tomography images were obtained of the brain without intravenous contrast. Findings: There is diffuse cerebral atrophy, within expected limits for the patient's age. Areas of decreased attenuation are seen within the periventricular white matter, likely representing chronic small vessel ischemic disease. There is an apparent old infarct of the right cerebellar hemisphere. There is no definite sign of acute infarction. No intracranial hemorrhage is evident. No definite mass lesion is seen on this noncontrast examination. There is no midline shift or other form of herniation. No hydrocephalus is seen. No fracture is identified. The orbits and the visualized paranasal sinuses appear unremarkable. The mastoid air cells appear clear. Impression: 1. Cerebral atrophy, old cerebellar infarct, and chronic small vessel ischemic disease 2. No definite acute pathology Electronically signed by Christian Montes 04-19-2025 3:48 PM Head CTA 04/19/25 14:55 Clinical history: Left leg weakness Technique: Axial computed tomography images were obtained of the brain after the administration of intravenous contrast according to the CT angiogram protocol Findings: No definite stenosis or aneurysm is seen of the anterior, middle, or posterior cerebral artery circulations. There is a moderate severity stenosis of the basilar artery Impression: 1. 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 No other definite stenosis or aneurysm of the intracranial arteries Electronically signed by Christian Montes 04-19-2025 3:51 PM Neck CTA 04/19/25 14:55 Clinical history: Left leg weakness Technique: Axial computed tomography images were obtained of the neck after the administration of intravenous contrast according to the CT angiogram protocol Findings: No stenosis is seen of the common carotid arteries bilaterally. There is plaque within the carotid bulbs bilaterally, without significant stenosis. The remainder of the internal carotid arteries appear patent bilaterally. No stenosis of the external carotid arteries is seen The vertebral arteries are patent bilaterally with no significant stenosis seen. 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 Impression: Bilateral carotid atherosclerosis, without significant stenosis Electronically signed by Christian Montes 04-19-2025 3:55 PM Orbit X-Ray 04/20/25 09:39 HISTORY: MRI clearance. Evaluation for orbital metal. TECHNIQUE: Orbits, 3 views. COMPARISON: None. FINDINGS: No radiopaque orbital foreign body is identified. The sella is not expanded. No paranasal sinus air-fluid levels. Mastoid air cells are well aerated. Radiopaque dental amalgam. Atherosclerotic calcification in the region of both carotid bifurcations. IMPRESSION: No radiopaque orbital foreign body. Electronically signed by Toño Llanos 04-20-2025 11:38 AM Brain MRI 04/20/25 10:25 HISTORY: Left lower extremity weakness. TECHNIQUE: MRI of the brain without contrast. COMPARISON: Head CT dated 04/19/2025. FINDINGS: The sella is not expanded. The cerebellar tonsils do not extend below the foramen magnum. Single focus of restricted diffusion involving the right centrum semiovale on series 8 image 35 consistent with a punctate infarct. Rightcerebellar hemisphere encephalomalacia consistent with remote infarct. Severe periventricular/Subcortical white matter T2/FLAIR hyperintensity is nearly confluent. areas of remote lacunar infarct involving the basal ganglia and right centrum seminal ovale. Moderate diffuse volume loss. Ventricular caliber is appropriate for the degree of volume loss. The fourth ventricle is midline. The basal cisterns are patent. The major intracranial flow voids are maintained. The globes and orbits are unremarkable. No paranasal sinus air-fluid levels. Mastoid air cells are well aerated. The soft tissues of the skull base and scalp are unremarkable. IMPRESSION: * Punctate focus of restricted diffusionIn the right centrum semiovale on series 8 image 35 consistent with acute infarct. * Severe nonspecific white matter T2/FLAIR hyperintensity. This is commonly attributed to severe chronic microvascular ischemic changes with other differential considerations including demyelinating disease or other infectious or inflammatory causes of leukoencephalopathy. * Encephalomalacia in the right cerebellar hemisphere consistent with remote infarct. * Additional chronic and/or incidental findings as detailed above. Electronically signed by Toño Llanos 04-20-2025 12:29 PM
[2025-04-20] MEDS: CLOPIDOGREL BISULFATE 300 MG TAB PO STA (15:20)
--- NOTE | 2025-04-20 19:41 | Electrocardiogram Report ---
Test Reason : Blood Pressure : */* mmHG Vent. Rate : 85 BPM Atrial Rate : 85 BPM P-R Int : 168 ms QRS Dur : 94 ms QT Int : 364 ms P-R-T Axes : 85 -44 -4 degrees QTcB Int : 433 ms Normal sinus rhythm Left axis deviation Inferior infarct , age undetermined Anterior infarct , age undetermined Abnormal ECG No previous ECGs available Confirmed by Fernando Handley ([id number]) on 04/20/2025 7:41:18 PM Referred By: REFERRED SELF Confirmed By: Fernando Handley
--- NOTE | 2025-04-20 19:42 | Electrocardiogram Report ---
Test Reason : Blood Pressure : */* mmHG Vent. Rate : 69 BPM Atrial Rate : 69 BPM P-R Int : 186 ms QRS Dur : 94 ms QT Int : 390 ms P-R-T Axes : 60 -35 -6 degrees QTcB Int : 417 ms Normal sinus rhythm Left axis deviation Inferior infarct (cited on or before 19-Apr-2025) Anteroseptal infarct (cited on or before 19-Apr-2025) Abnormal ECG When compared with ECG of 19-Apr-2025 15:07, Anterolateral infarct is no longer Present Confirmed by Fernando Handley ([id number]) on 04/20/2025 7:42:08 PM Referred By: REFERRED SELF Confirmed By: Fernando Handley
[2025-04-21 06:03] LABS: Hematocrit (blood only) 43.4 % (42.0-52.0); Hemoglobin 14.8 g/dl (14.0-18.0); Immature Granulocytes # (auto) 0.03 K/uL (0.01-0.20); Immature Granulocytes % (auto) 0.4 %; Mean Corpuscular Hemoglobin 31.4 pg (25.0-34.0); Mean Corpuscular Volume 92.1 fL (80.0-100.0); Platelet Count 236 K/uL (130-400); RDW Standard Deviation 43.4 fL (36.4-46.3); Red Blood Count 4.71 M/uL (4.70-6.10); White Blood Count 7.83 K/ul (4.8-10.8)
[2025-04-21 06:24] LABS: Anion Gap 7.0 (3-11); Blood Urea Nitrogen 22.0 mg/dl (6-23); Calcium 9.5 mg/dl (8.6-10.3); Carbon Dioxide 32.0 mmol/L (21-32); Chloride 101.0 mmol/L (98-107); Creatinine Clr Calc Pharmacy 48.5 ml/min; Glucose 93.0 mg/dl (70-99(Fasting)); Potassium 3.4 mmol/L (3.5-5.1); Sodium 140.0 mmol/L (136-145)
[2025-04-21] MEDS: CLOPIDOGREL BISULFATE 75 MG TAB PO SCH (09:04)
[2025-04-21] MEDS: VALSARTAN 80 MG TAB PO SCH (09:04)
[2025-04-21] MEDS: hydroCHLOROthiazide 25 MG TAB PO SCH (09:04)
[2025-04-21] MEDS: HEPARIN SOD 5,000 UNIT/0.5 ML VIAL SQ SCH (09:08)
--- NOTE | 2025-04-21 09:10 | Pharmacy Report ---
- Date of Service April 21, 2025 - Pharmacy CVA/TIA Medication Review Medications to Prevent Stroke handout has been added to the patients discharge packet. Antiplatelet(s) * aspirin 81 mg PO daily + clopidogrel 75 mg PO daily x 3 weeks, then monotherapy Cholesterol * High intensity statin: atorvastatin 80 mg daily DVT Prophylaxis * Heparin SQ Therapeutic Anticoagulation * No history of Afib/Aflutter noted Type 2 Diabetes * Patient does not have T2DM
--- NOTE | 2025-04-21 10:03 | Hospitalist Progress Note ---
Date of Service April 21, 2025 Assessment & Plan (1) Acute left-sided weakness: (2) HTN (hypertension): (3) HLD (hyperlipidemia): (4) CAD (coronary artery disease): Plan Acute ischemic CVA Patient presents with concern for left sided weakness ( LLE weakness > LUE) CT head shows a chronic cerebellar stroke CTA Head- mod severity stenosis of basilar artery CTA Neck- carotid atherosclerosis, wo significant stenosis MRI brain shows acute infarct in right centrum semiovale consistent with acute infarct. Also found to have severe chronic microvascular ischemic changes. Encephalomalacia in the right cerebral hemisphere consistent with remote stroke Echocardiogram shows EF of 60 to 65%; grade 1 diastolic dysfunction. No intra atrial shunt Continue on aspirin and Plavix for 21 days as recommended by neurology Continue on Lipitor Restarted on antihypertensive with hydrochlorothiazide and valsartan; discussed close monitoring of blood pressure at home continue pt/to CAD HTN HLD - pt reports hx of angioplasty in 2017, have requested records from O[facility] by HIM -continue on aspirin, lipitor -continue on antihypertensive( hctz, valsartan) DVT ppx: heparin Lines: PIV x 1 Diet: HH CODE: FULL Dispo: from [place] visiting friends;possible dc in am Time spent evaluating patient, direct bedside care, chart review, placing orders, interpretation of diagnostic studies, discussion with consultants, patient, and family members, as well as other required patient management activities is 50 minutes Please note the above document was generated using voice recognition software. It may contain grammatical, syntax or spelling errors. Any formal questions or concerns about the content, text or information contained within the body of this dictation should be directly addressed to the provider for clarification Admission and Anticipated Discharge Date Admission Date: April 19, 2025 Subjective Patient seen and examined at bedside. He is comfortable; not in distress. Reports that the weakness on left side is similar to yesterday. Denies any chest pain or discomfort. No significant events overnight Review of Systems Review of Systems: All systems reviewed & are unremarkable except as noted in Subjective Physical Exam Physical Exam: Constitutional: WD/WN, vitals as above, NAD, sitting up in bed, pleasant, conversing easily Respiratory: normal respiratory effort, lungs clear to auscultation, no wheeze, rales, rhonchi. Normal insp/exp effort, no accessory muscle use Cardiovascular: RRR, no murmur, no edema Vessels: no JVD or carotid bruit Chest: normal inspection of chest Abdomen: normal bowel sounds, soft, nontender, no hepatosplenomegaly Neurologic: PERRL, EOMI, accommodation nl, no face palsy, no dysarthria CN's II- XI intact bilaterally. left LE 4+/5. intact strength otherwise Psychiatric: A+Ox3, euthymic affect Results & Data Results & Data Vital Signs (Past 12 Hours) Vital Signs Temp Pulse Pulse Pulse Resp BP Pulse Ox 04/21/25 07:58 36.5 C 74 22 178/100 H 94 04/21/25 04:22 73 04/21/25 03:21 36.4 C L 66 18 148/90 H 97 04/20/25 23:22 36.3 C L 73 19 189/101 H 97 O2 Del Method 04/21/25 07:58 Room Air 04/21/25 04:22 04/21/25 03:21 CPAP 04/20/25 23:22 Room Air
[2025-04-21] MEDS: POTASSIUM CHLORIDE CRTAB 20 MEQ TABCR PO STA (11:42)
[2025-04-21 23:56] VITALS: O2SAT 97
[2025-04-22 03:20] VITALS: TEMP 98.1
[2025-04-22 06:34] LABS: Hematocrit (blood only) 43.6 % (42.0-52.0); Hemoglobin 15.0 g/dl (14.0-18.0); Immature Granulocytes # (auto) 0.01 K/uL (0.01-0.20); Immature Granulocytes % (auto) 0.1 %; Mean Corpuscular Hemoglobin 31.3 pg (25.0-34.0); Mean Corpuscular Volume 91.0 fL (80.0-100.0); Platelet Count 228 K/uL (130-400); RDW Standard Deviation 43.1 fL (36.4-46.3); Red Blood Count 4.79 M/uL (4.70-6.10); White Blood Count 6.73 K/ul (4.8-10.8)
[2025-04-22 07:00] LABS: Anion Gap 8.0 (3-11); Blood Urea Nitrogen 25.0 mg/dl (6-23); Calcium 9.3 mg/dl (8.6-10.3); Carbon Dioxide 29.0 mmol/L (21-32); Chloride 101.0 mmol/L (98-107); Creatinine Clr Calc Pharmacy 49.7 ml/min; Glucose 90.0 mg/dl (70-99(Fasting)); Potassium 3.3 mmol/L (3.5-5.1); Sodium 138.0 mmol/L (136-145)
[2025-04-22 08:01] VITALS: BP 148/88; RESP 21
[2025-04-22] MEDS: POTASSIUM CHLORIDE CRTAB 20 MEQ TABCR PO STA (08:18)
[2025-04-22 09:59] VITALS: PULSE 66
[2025-04-22] MEDS: STROKE PATIENT DISCHARGE STA (10:24)
--- NOTE | 2025-04-22 10:36 | Discharge Summary ---
Date of Service April 22, 2025 Admission HPI Per Admitting Provider This is a 69 yo M with PMHx of CAD, s/p angioplasty in 2017, (no stents), HTN, HLD, but does not take any medications for such. Presents to ER with left sided waxing and waning weakness which began night. He got up in middle of night and fell next to the bed because his left leg gave out , causing him to fall onto the floor. At that time he noticed left hand tingling as well. He struggled for some time to get up and urinated on himself due to inability to get to the bathroom in time. Eventually pulled himself up and went back to bed. Left leg weakness was slightly improved but was still present on Monday morning, so he attempted to go about his day. Left leg weakness worsened in the evening and he had similar repeat of events with falling when trying to get out of bed to go to the bathroom in the middle of the night on Monday. Pt is visiting here from [place] and has been here for about the past 3 weeks, living with a significant other whom [place] She asked him to come to the ER and drove him here. 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 He denies speech discrepancies, word finding or garbled speech. He does note that he has had difficulty over the past 3 weeks with word finding and forgetfulness. CTA neck shows old cerebellar stroke. He was unaware of such. 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 He is tearful at times, saying that his only son is in the [employer] and out in the [place] currently, and he has no way to contact him regarding this. Pt notes he was supposed to travel back to [place] this weekend to start a new job on Monday. In regards to medications, patient is supposed to be taking chlorthalidone for BP management but does not know when he took it last or the dosage, also takes a baby aspirin when he remembers it, maybe 3-4x per week. Social Hx: Chews cigars but does not smoke them, no cigarette smoking hx, no chewing tobacco use, no alcohol or illicit drug use. Family Hx: Father: CVA, Alzheimer disease, at age 90 in 2013. Mother at age 97 of failure to thrive. Pt has two older sisters both with DM II, and two younger brothers with DMII. One of his brothers has also had a recent CVA. Admission Exam Per Admitting Provider General: awake, alert, no apparent distress, white male Head: Normocephalic, atraumatic ENT: PERRL, EOMI, no pharyngeal exudate, mucous membranes moist Chest: Clear to auscultation, on room air, no adventitious breath sounds Cardiac: Regular rate and rhythm, no murmur, no JVD, normal peripheral pulses, good capillary refill Abdominal: NABS x 4 quadrants, soft, nondistended, nontender to palpation, no rebound or guarding Extremities: Normal inspection, no peripheral edema or erythema, calfs nontender to palpation Psych: Normal mood and affect Neuro: AAO x 3, strength rated 5/5 on the right lower extremity, rated 4/5 in the left leg and can hold leg in the air but unable to lift more than 30 degrees off the bed. He struggles to bend the left knee and pull his leg up. Pt answers all questions appropriately. No pronator drift. He has strength left arm rated 4/5 compared to the right at 5/5. [employer] strength left 4/5, right is 5/5. Pt is unable to shrug the left shoulder at all. He has no sensory deficits to light touch throughout. Speech is clear. No word finding. Can perform heel to girard testing with right leg, difficulty with the left leg moving down the right girard. Principal Diagnosis Acute ischemic CVA Discharge Exam Constitutional: WD/WN, vitals as above, NAD, sitting up in bed, pleasant, conversing easily Respiratory: normal respiratory effort, lungs clear to auscultation, no wheeze, rales, rhonchi. Normal insp/exp effort, no accessory muscle use Cardiovascular: RRR, no murmur, no edema Vessels: no JVD or carotid bruit Chest: normal inspection of chest Abdomen: normal bowel sounds, soft, nontender, no hepatosplenomegaly Musculoskeletal: no cyanosis or clubbing, extremities motor strength 5/5 Skin: no rashes, warm and dry normal turgor Neurologic: PERRL, EOMI, accommodation nl, no face palsy, no dysarthria CN's II- XI intact bilaterally. strenth improved on LLE- 5/5 Psychiatric: A+Ox3, euthymic affect Discharge Data Allergies Allergy/AdvReac Type Severity Reaction Status Date / Time pollen extracts Allergy Congested Verified 04/19/25 16:50 Consultations 04/19/25 16:53 ED Decision to Admit Stat 04/19/25 17:50 HIM [Consult Health Information Management] Stat 04/19/25 18:52 Consult Neurology Routine Ordered Studies 04/19/25 14:55 CT angio head w con Stat CT angio neck with con Stat CT head/brain wo con Stat 04/20/25 10:25 MR brain wo con Routine Hospital Course (1) Stroke with cerebral ischemia: Plan Patient presents with concern for left sided weakness ( LLE weakness > LUE) CT head shows a chronic cerebellar stroke CTA Head- mod severity stenosis of basilar artery CTA Neck- carotid atherosclerosis, wo significant stenosis MRI brain shows acute infarct in right centrum semiovale consistent with acute infarct. Also found to have severe chronic microvascular ischemic changes. Encephalomalacia in the right cerebral hemisphere consistent with remote stroke Echocardiogram shows EF of 60 to 65%; grade 1 diastolic dysfunction. No intra atrial shunt Patient was admitted to medical floor; was started on aspirin, Plavix, Lipitor as recommended by neurology. He was also started on antihypertensive. PT OT evaluation was done. Patient reported significant improvement in his left leg weakness. Patient was discharged home with instructions to follow-up with his PCP. Please note the above document was generated using voice recognition software. It may contain grammatical, syntax or spelling errors. Any formal questions or concerns about the content, text or information contained within the body of this dictation should be directly addressed to the provider for clarification Total Time Total Time Spent Total Time Spent (In Minutes): 45 Total Time Includes: Examination of the Patient, Discharge Planning, Medication Reconciliation, Communication With Other Providers and Other Discharge Plan Discharge Items Patient Disposition: Home - Self-Care Reason For Visit: CVA Discharge Diagnosis: Acute ischemic CVA Condition on Discharge: Fair Activity: Resume your previous activity Non-emergency contact: Primary Care Provider Call non-emergency contact if: you have any medication questions and your symptoms worsen Follow-up/Referrals: PCP,NO [Primary Care Provider] - Diet: Regular Addtl Attending Provider Instructions: You were admitted to the hospital due to a stroke. You were evaluated by neurology during hospitalization. They recommend following medications; Take Plavix(clopidogrel) once a day for 19 more days Take aspirin 81 mg once a day. This is to be taken indefinitively. Take Lipitor 80 mg once a day. This is to be taken indefinitively. Please continue to take your antihypertensive medication like you are doing before. Please follow-up with your primary care doctor. Pending Studies at Discharge: No Stand-Alone Forms: My [facility], Smoking Cessation, Medications to P revent Stroke Medications and DC Order Prescriptions: New clopidogrel 75 mg Tablet 75 mg PO QAM 19 Days Qty: 19 0RF aspirin 81 mg Tablet,Delayed Release (Dr/Ec) 81 mg PO QAM Qty: 30 0RF atorvastatin [Lipitor] 80 mg tablet 80 mg PO DAILY Qty: 30 0RF Continued valsartan-hydrochlorothiazide 320-25 mg Tablet 1 tab PO QAM Qty: 30 0RF Discharge Orders: Discharge Order (Routine); Ordered 04/22/25 Ordered By: Ced Ramsey Admission Data Admit Date/Time: 04/19/25 17:46 Attending Provider: Ced Ramsey Admit Provider: Tushar Bonilla Primary Care Provider: PCP,NO Other Providers: Tushar Bonilla; Aditya Pike Other Interventions: Discharge Summary Assessment (RN) Last Done: 04/22/25 09:58
== END 2025-04-22 12:01 | disposition home or self-care (01) | DRG 66 ==
LOC: ED 14:32 → 2E 17:46 → SUATTDRO 17:46 → 2E 18:27